=== PATIENT | female | born 1965 | race Two or more races ===

== ENCOUNTER 2017-08-25 13:15 | Day surgery (SDC) | payer OTHER ==
[~2017-08-25] VITALS: Ht 177.8 cm; Wt 69.0 kg
[~2017-08-25 13:15] MED LIST: HYDACE5 PO; NAPR550 PO
== END 2017-08-25 16:04 | disposition home or self-care (01) ==
LOC: ORSCSDS 13:15
PROVIDERS: Urology
PROC: 0T778DZ Dilation of Left Ureter with Intraluminal Device, Via Natural or Artificial Opening Endoscopic (ICD-10-PCS; principal; 2017-08-25 14:30)
PROC: 0TF78ZZ Fragmentation in Left Ureter, Via Natural or Artificial Opening Endoscopic (ICD-10-PCS; principal; 2017-08-25 14:30)
DX: N20.1 Calculus of ureter (principal); N20.0 Calculus of kidney
CPT/HCPCS: 82360; C1769; C1889; C1894; C2617; J0744; J1100; J1885; J2250; J2405; J2710; J2765; J3010; J7120